=== PATIENT | female | born 1980 | race American Indian/Alaskan Native ===

== ENCOUNTER 2018-03-06 13:03 | Emergency (ER) | payer BC ==
[2018-03-06] MEDS ORDERED: TYLENOL PO STA (13:29)
[2018-03-06] MEDS ORDERED: NACL 0.9% 500 ML 500 ML IV ONE (13:29)
[2018-03-06] MEDS ORDERED: TYLENOL ONE (13:34)
[2018-03-06] MEDS ORDERED: ZOSYN/NS 4.5GM/100ML 4.5 GM/100 ML VIAL IV ONE (13:44)
[2018-03-06] MEDS ORDERED: NACL 0.9% 1000 ML 1,000 ML IV ONE (13:44)
--- NOTE | 2018-03-06 13:48 | Emergency Department Report ---
ED General Adult HPI - General Chief complaint: Fever Stated complaint: RACHELLE/CHEST PAIN Time Seen by Provider: 03/06/18 13:37 Source: patient Mode of arrival: Ambulatory Limitations: No Limitations - History of Present Illness Initial comments: Patient is 37 years old female with history of hypertension. Patient presented to the ER complaining of a fever 103.2, cough and congestion for the last 2 weeks. Patient stated that she went to an urgent care center initially and she was given steroid and a Z-Erlin, symptoms improved for one or 2 days and return back so she went to her primary care physician prescribed amoxicillin and Zyrtec 's. Patient stated that she was not feeling better. She stated that she's been coughing greenish sputum. She denied any nausea or vomiting. Sepsis code initiated. She immediately put on a quality assurance monitor chassis, IV access and patient received fluids and antibiotics. Severity scale (0 -10): 10 - Related Data Previous Rx's Medication Instructions Recorded Last Taken Type Ibuprofen 800 mg PO TID PRN #30 tablet 03/06/18 Unknown Rx guaiFENesin/CODEINE [Robitussin AC] 10 ml PO TID PRN #100 ml 03/06/18 Unknown Rx levoFLOXacin [Levaquin TAB] 500 mg PO QDAY #7 tablet 03/06/18 Unknown Rx Allergies Allergy/AdvReac Type Severity Reaction Status Date / Time No Known Allergies Allergy Unverified 03/06/18 13:29 ED Review of Systems ROS: Stated complaint: RACHELLE/CHEST PAIN Other details as noted in HPI Comment: All other systems reviewed and negative Constitutional: chills, fever ENT: throat pain. denies: ear pain Respiratory: cough. denies: orthopnea, shortness of breath, SOB with exertion, SOB at rest, wheezing Cardiovascular: palpitations. denies: chest pain, dyspnea on exertion, orthopnea Gastrointestinal: denies: abdominal pain, nausea, vomiting, diarrhea, constipation, hematemesis, hematochezia Neurological: denies: headache, weakness, numbness, paresthesias, confusion ED Past Medical Hx - Past Medical History Previous Medical History?: Yes Hx Hypertension: Yes - Surgical History Past Surgical History?: Yes Additional Surgical History: ankle surgery. carpal tunnel surgery. T&A. c- section - Social History Smoking Status: Never Smoker Substance Use Type: None - Medications Home Medications: Home Medications Medication Instructions Recorded Confirmed Last Taken Type Ibuprofen 800 mg PO TID PRN #30 tablet 03/06/18 Unknown Rx guaiFENesin/CODEINE [Robitussin AC] 10 ml PO TID PRN #100 ml 03/06/18 Unknown Rx levoFLOXacin [Levaquin TAB] 500 mg PO QDAY #7 tablet 03/06/18 Unknown Rx ED Physical Exam - General Limitations: No Limitations General appearance: alert, in no apparent distress - Head Head exam: Present: atraumatic, normocephalic, normal inspection - Eye Eye exam: Present: normal appearance, PERRL - ENT ENT exam: Present: normal exam, normal orophraynx, mucous membranes moist - Neck Neck exam: Present: normal inspection, full ROM. Absent: tenderness, meningismus, lymphadenopathy, thyromegaly - Respiratory Respiratory exam: Present: normal lung sounds bilaterally. Absent: respiratory distress, wheezes, rales, rhonchi, stridor, chest wall tenderness, accessory muscle use, decreased breath sounds, prolonged expiratory - Cardiovascular Cardiovascular Exam: Present: tachycardia - GI/Abdominal GI/Abdominal exam: Present: soft, normal bowel sounds. Absent: distended, tenderness, guarding, rebound, rigid, organomegaly, mass, bruit, pulsatile mass , hernia - Extremities Exam Extremities exam: Present: normal inspection, full ROM. Absent: pedal edema, calf tenderness - Neurological Exam Neurological exam: Present: alert, oriented X3, CN II-XII intact, normal gait, reflexes normal - Skin Skin exam: Present: warm, intact, normal color ED Course Vital Signs 03/06/18 03/06/18 03/06/18 13:24 13:52 13:55 Temperature 103.0 F H 99.8 F H Pulse Rate 134 H 126 H Respiratory 18 20 Rate Blood Pressure 126/84 O2 Sat by Pulse 99 99 Oximetry 03/06/18 03/06/18 03/06/18 14:00 14:16 14:30 Temperature Pulse Rate 123 H 119 H 113 H Respiratory 28 H 15 23 Rate Blood Pressure 129/71 129/71 121/73 O2 Sat by Pulse 98 97 98 Oximetry 03/06/18 03/06/18 03/06/18 14:46 15:00 15:16 Temperature Pulse Rate 90 110 H 110 H Respiratory 19 13 15 Rate Blood Pressure 121/73 121/73 121/73 O2 Sat by Pulse 98 99 Oximetry 03/06/18 03/06/18 15:34 15:46 Temperature Pulse Rate 116 H 125 H Respiratory 15 25 H Rate Blood Pressure 121/73 121/73 O2 Sat by Pulse 99 Oximetry ED Medical Decision Making - Lab Data Result diagrams: 03/06/18 13:36 03/06/18 13:36 - Radiology Data Radiology results: report reviewed Chest x-ray is unremarkable. - Medical Decision Making Patient is 37 years old female with history of hypertension. Patient presented to the ER complaining of a fever 103.2, cough and congestion for the last 2 weeks. Patient stated that she went to an urgent care center initially and she was given steroid and a Z-Erlin, symptoms improved for one or 2 days and return back so she went to her primary care physician prescribed amoxicillin and Zyrtec 's. Patient stated that she was not feeling better. She stated that she's been coughing greenish sputum. She denied any nausea or vomiting. Sepsis code initiated. She immediately put on a quality assurance monitor chassis, IV access and patient received fluids and antibiotics. Patient lactic acid is negative. Chest x-ray is unremarkable. Labs reviewed and unremarkable. Influenza A and B antigens negative. Patient stated that she is feeling much better. I believe this is acute bronchitis I will start patient on Levaquin and Robitussin AC and advised patient to follow up with her primary care physician and to drink more fluids as much as he can. Also advised her to return to the ER if her symptoms are not improving. Critical care attestation.: If time is entered above; I have spent that time in minutes in the direct care of this critically ill patient, excluding procedure time. ED Disposition Clinical Impression: Fever, Acute bronchitis Disposition: - TO HOME OR SELFCARE Is pt being admited?: No Condition: Stable Instructions: Fever in Adults (ED), Acute Bronchitis (ED) Prescriptions: guaiFENesin/CODEINE [Robitussin AC] 10 ml PO TID PRN #100 ml PRN Reason: Cough Ibuprofen 800 mg PO TID PRN #30 tablet PRN Reason: Pain , Severe (7-10) levoFLOXacin [Levaquin TAB] 500 mg PO QDAY #7 tablet Referrals: PRIMARY CARE, [Primary Care Provider] - 3-5 Days Forms: Work/School Release Form(ED)
[2018-03-06 14:16] LABS: Basophils # (Auto) 0.1 K/mm3 (0.0-0.1); Eosinophils % (Auto) 0.6 % (0.0-4.3); Hematocrit 36.3 % (30.3-42.9); Hemoglobin 12.2 gm/dl (10.1-14.3); Lymphocytes # (Auto) 1.2 K/mm3 (1.2-5.4); Lymphocytes % (Auto) 16.2 % (13.4-35.0); Mean Corpuscular HGB Conc 34 % (30-34); Mean Corpuscular Hemoglobin 27 pg (28-32); Mean Corpuscular Volume 81 fl (79-97); Monocytes # (Auto) 1.1 K/mm3 (0.0-0.8); Monocytes % (Auto) 15.2 % (0.0-7.3); Platelet Count 336 K/mm3 (140-440); Red Blood Count 4.49 M/mm3 (3.65-5.03)
[2018-03-06 14:27] LABS: INR 1.01 (0.87-1.13)
[2018-03-06 14:36] LABS: Albumin 3.9 g/dL (3.9-5); Calcium 8.8 mg/dL (8.4-10.2)
--- NOTE | 2018-03-06 15:22 | XRay Report ---
FINAL REPORT PROCEDURE: Portable AP chest x-ray TECHNIQUE: Chest radiograph anteroposterior view. CPT 53471 HISTORY: possible Sepsis utp ordered COMPARISON: No prior studies are available for comparison. FINDINGS: Heart: Normal size. Mediastinum/Vessels: Normal. Lungs/Pleural space: Normal. Bony thorax: No acute osseous abnormality. Life support devices: None. IMPRESSION: No acute cardiopulmonary abnormality.
[2018-03-06 15:53] LABS: Bilirubin,Urine NEG (Negative); Blood,Urine NEG (Negative); Color,Urine Yellow (Yellow); Mucus,Urine FEW /HPF; Protein,Urine <15 mg/dL mg/dL (Negative); Urobilinogen,Urine < 2.0 mg/dL (<2.0)
[2018-03-06 17:42] VITALS: BP 101/41
== END 2018-03-06 17:41 | disposition home or self-care (01) ==
LOC: ED 13:03
DX: J40 Bronchitis, not specified as acute or chronic (principal); I10 Essential (primary) hypertension
CPT/HCPCS: 36415; 71045; 80053; 81001; 82140; 82805; 84703; 85025; 85610; 87040; 87086; 87400; 93005; 93010; 96365; 99284; J2543; J7030